=== PATIENT | female | born 1995 | race Caucasian/White ===

== ENCOUNTER → 2016-04-29 | Outpatient (CLI) | payer OTHER ==
--- NOTE | 2016-04-29 14:52 | MAMMOGRAPHY REPORT ---
ULTRASOUND OF LEFT BREAST: 04/29/2016 CLINICAL HISTORY: The patient reports a palpable lump in her left breast which she has felt for 3 we eks. She feels that it fluctuates in size. COMPARISON: No prior exams were available for comparison. TECHNIQUE: Real-time targeted ultrasound of the left breast was performed. FINDINGS: Real-time, high resolution targeted ultrasound was performed of the area of the palpable lump pointe d out by the patient, in the left breast at approximately 11:30 to 12:00, 7 cm from the nipple. Son ographically normal tissue is seen in this region, without evidence of a mass or other suspicious so nographic abnormality. Normal dense fibroglandular tissue is seen at the site, which likely account s for the palpable finding. IMPRESSION: ACR BI-RADS CATEGORY 2: BENIGN No suspicious sonographic abnormality at the site of the palpable lump in the left 12:00 breast. Th ere is no sonographic evidence of malignancy. Recommend clinical follow-up. The patient was verbal ly notified of the results. Kathleen Wynn M.D. ah/:04/29/2016 09:32:33 Equipment Analyst: Faith LIVE(Rupa)(M), letter sent: Normal 1/2 BI-RADS Code: ACR BI-RADS Category 2: Benign
== END | disposition home or self-care (01) ==
LOC: C.MAMM 08:48
PROVIDERS: ATTEND Nurse Practitioner Women's Health
DX: N63 Unspecified lump in breast (principal)